=== PATIENT | female | born 1970 | race Caucasian/White ===

== ENCOUNTER 2019-06-05 05:36 | Day surgery (SDC) | payer MEDICARE, MEDICAID ==
[~2019-06-05] VITALS: Ht 157.5 cm; Wt 68.9 kg
[~2019-06-05 05:36] MED LIST: ATOR10TA70 PO; CHOL400T14 PO; DOCU100C40 PO; ERYT60SO TOP; PHEN16.22 PO; POLY17PO10 PO; SERT100T10 PO; famotidine 10mg tablet PO ONE; ringers solution, lacted 1,000 ML IV SCH
[2019-06-05 05:45] VITALS: BP 119/73
[2019-06-05] MEDS ORDERED: LIDOcaine 1% (10mg/ml) 2ml vial ONE (06:15)
[2019-06-05] MEDS ORDERED: midazolam 2 mg/2 ml injection ONE ×2 (07:09→08:29)
[2019-06-05] MEDS ORDERED: fentaNYL/PF 50MCG/1 ML 2ML syringe ONE ×2 (07:09→08:29)
[2019-06-05] MEDS ORDERED: oxymetazoline 15 ML nasal spray NS ONE (07:11)
[2019-06-05] MEDS ORDERED: LIDOcaine 2% 10ml TOPICAL JELLY (Urojet) ONE (07:11)
[2019-06-05] MEDS ORDERED: ondansetron/PF 4mg/2ml inj ONE (07:13)
[2019-06-05] MEDS ORDERED: dexamethasone sod phosphate 4mg/ml inj. ONE (07:13)
[2019-06-05] MEDS ORDERED: propofol inj 20 ML IV ONE (07:13)
[2019-06-05] MEDS ORDERED: LIDOcaine 2% (20mg/ml) 5ml vial ONE (07:13)
[2019-06-05] MEDS ORDERED: rocuronium 10mg/ml inj IV ONE (07:13)
[2019-06-05] MEDS ORDERED: ringers solution, lacted 1,000 ML IV SCH (07:22)
[2019-06-05] MEDS ORDERED: morphine 4 MG/ML inj SYRINge IV PRN ×2 (07:25)
[2019-06-05] MEDS ORDERED: fentaNYL/PF 50MCG/1 ML 2ML syringe IV PRN ×2 (07:25)
[2019-06-05] MEDS ORDERED: ondansetron/PF 4mg/2ml inj IV PRN (07:25)
[2019-06-05] MEDS ORDERED: hydrALAZINE 20mg/ml inj. IV PRN (07:25)
[2019-06-05] MEDS ORDERED: labetalol 20mg/4ml (5mg/ml) syringe IV PRN (07:25)
[2019-06-05 07:32] LABS: EOSINOPHILS # (AUTO) 0.1 X10'3 (0-0.9); EOSINOPHILS % (AUTO) 2.1 % (0-6); LYMPHOCYTES # (AUTO) 1.1 X10'3 (1.1-4.8); LYMPHOCYTES % (AUTO) 28.7 % (21-51); MEAN CORPUSCULAR HEMOGLOBIN 29.6 PG (27.0-31.0); MEAN CORPUSCULAR HGB CONC 33.5 g/dL (33.0-36.5); MEAN CORPUSCULAR VOLUME 88.3 FL (78-98); MEAN PLATELET VOLUME 8.2 FL (7.4-10.4); MONOCYTES # (AUTO) 0.3 X10'3 (0-0.9); MONOCYTES % (AUTO) 7.1 % (2-12); NEUTROPHILS # (AUTO) 2.4 X10'3 (1.8-7.7); NEUTROPHILS % (AUTO) 61.1 % (42-75); PRE OP HEMATOCRIT 42.8 % (35.0-45.0); PRE OP HEMOGLOBIN 14.3 g/dL (12.0-16.0); PRE OP PLATELET COUNT 218 X10'3 (140-440); RED BLOOD COUNT 4.85 X10'6 (4.20-5.60); RED CELL DISTRIBUTION WIDTH 14.7 % (11.5-14.5)
[2019-06-05] MEDS ORDERED: glycopyrrolate 0.2mg/ml inj ONE (07:32)
[2019-06-05] MEDS ORDERED: sevoflurane 250ml liquid IH ONE (07:32)
[2019-06-05] MEDS ORDERED: neostigmine methylsulfate 1 MG/ML 10ml vial ONE (07:32)
[2019-06-05 07:46] LABS: ALBUMIN 4.1 G/DL (3.4-5.0); ALKALINE PHOSPHATASE 102 IU/L (46-116); BLOOD UREA NITROGEN 13 MG/DL (7-18); BUN/CREATININE RATIO 24.1 (6.6-38.0); CALCIUM 9.3 MG/DL (8.5-10.1); CHLORIDE 104 MMOL/L (99-107); CREATININE 0.54 MG/DL (0.40-0.90); PRE OP ALT 26 U/L (30-65); PRE OP ANION GAP 6 (8-16); PRE OP AST 15 U/L (10-37); PRE OP BILIRUB, TOTAL 0.3 MG/DL (0.0-1.0); PRE OP GLUCOSE 82 MG/DL (70-104); PRE OP SODIUM 138 MMOL/L (135-145); TOTAL CARBON DIOXIDE 27.6 MMOL/L (24-32); TOTAL PROTEIN 8.1 G/DL (6.4-8.2); eGFR > 90 ML/MIN
[2019-06-05 09:19] VITALS: BP 127/63
--- NOTE | 2019-06-05 09:19 | NUR ---
Received from OR via [facility] , accompanied by Anesthesiologist EZIO and report given by Anesthesiolgist. PATIENT WITH 20G PIV IN RIGHT UE RUNNING LR AT 100. NO DRAINS PRESENT. VSS. Addendum: 06/05/19 at 0934 by Gustabo Navarro RN RN Amended: Links added.
[2019-06-05 09:29] VITALS: BP 129/69
--- NOTE | 2019-06-05 09:39 | NUR ---
ALL DC CRITERIA HAS BEEN MET. IV TAKEN OUT WITHOUT COMPLICATIONS. ALL INSTRUCTIONS COVERED AND ALL QUESTIONS ANSWERED. DRESSINGS CDI. OUT VIA WHEELCHAIR TO PERSONAL VEHICLE WHERE PATIENT WAS SECURED IN AND DRIVEN HOME BY FAMILY. ANIMAL TRAPPER PRESENT TO HELP WITH DRESSING AND CLEANSING. (LOST BLADDER CONTROL) PATIENT CLEANSED AND SKIN CDI. OUT VIA PERSONAL WHEELCHAIR AND TRANSPORT WITH LAWYER REAL ESTATE. ALL QUESTIONS ANSWERED. Addendum: 06/05/19 at 0955 by Gustabo Navarro RN, RN Amended: Links added.
== END 2019-06-05 09:39 | disposition home or self-care (01) ==
LOC: PAS 05:36
PROVIDERS: ATTEND Student in an Organized Health Care Education/Training Program
DX: K02.9 Dental caries, unspecified (principal); K05.6 Periodontal disease, unspecified; F32.9 Major depressive disorder, single episode, unspecified; G80.0 Spastic quadriplegic cerebral palsy; E78.5 Hyperlipidemia, unspecified; G40.909 Epilepsy, unspecified, not intractable, without status epilepticus; E66.3 Overweight; Z68.27 Body mass index [BMI] 27.0-27.9, adult; Z79.899 Other long term (current) drug therapy
CPT/HCPCS: 36415; 41899; 80053; 85025; J1100; J2001; J2250; J2405; J2704; J2710; J3010; A4618; A7000; J3490; J7120

== ENCOUNTER 2022-06-15 18:06 | Emergency (ER) | payer MEDICARE, OTHER ==
[~2022-06-15] VITALS: Ht 157.5 cm; Wt 77.3 kg
[~2022-06-15 18:06] MED LIST changes: +SERT-434 PO; -SERT100T10 PO; -famotidine 10mg tablet PO ONE; -ringers solution, lacted 1,000 ML IV SCH
[2022-06-15 18:19] VITALS: BP 118/90
[2022-06-15] MEDS ORDERED: MICO24CM2 VG (23:07)
--- NOTE | 2022-06-15 23:28 | NUR ---
[phone] RN sanitation worker hosing machinery [phone] Fatemeh, Caregiver; or Arely, Caregiver
== END 2022-06-15 23:37 | disposition home or self-care (01) ==
LOC: ER 18:07
DX: N89.8 Other specified noninflammatory disorders of vagina (principal); R30.9 Painful micturition, unspecified; Z88.0 Allergy status to penicillin; Z88.1 Allergy status to other antibiotic agents; Z88.5 Allergy status to narcotic agent; Z88.8 Allergy status to other drugs, medicaments and biological substances; Z79.899 Other long term (current) drug therapy; Z79.1 Long term (current) use of non-steroidal anti-inflammatories (NSAID); Z79.2 Long term (current) use of antibiotics
CPT/HCPCS: 87210; 99284

== ENCOUNTER 2023-06-16 18:13 | Emergency (ER) | payer MEDICARE, OTHER ==
[~2023-06-16] VITALS: Ht 157.5 cm; Wt 75.0 kg
[~2023-06-16 18:13] MED LIST changes: +MICO24CM2 VG
[2023-06-16 18:20] VITALS: RESP 19
[2023-06-16 20:58] VITALS: BP 114/95; PULSE 115; TEMP 98; O2SAT 93
== END 2023-06-16 21:29 | disposition home or self-care (01) ==
LOC: ER 18:14
DX: S83.8X1A Sprain of other specified parts of right knee, initial encounter (principal); X58.XXXA Exposure to other specified factors, initial encounter; Y93.89 Activity, other specified; Y92.89 Other specified places as the place of occurrence of the external cause; Y99.8 Other external cause status
CPT/HCPCS: 73564; 99284

== ENCOUNTER 2023-06-20 19:21 | Emergency (ER) | payer MEDICARE, OTHER ==
[~2023-06-20] VITALS: Ht 157.5 cm; Wt 84.6 kg
[2023-06-20 20:43] VITALS: TEMP 97.5
[2023-06-20 21:23] LABS: BASOPHILS # (AUTO) 0.1 X10'3 (0-0.2); BASOPHILS % (AUTO) 0.7 % (0-1); EOSINOPHILS # (AUTO) 0.2 X10'3 (0-0.9); EOSINOPHILS % (AUTO) 1.8 % (0-6); HEMATOCRIT 32.3 % (35.0-45.0); HEMOGLOBIN 10.3 g/dl (12.0-16.0); LYMPHOCYTES # (AUTO) 1.3 X10'3 (1.1-4.8); LYMPHOCYTES % (AUTO) 14.9 % (21-51); MEAN CORPUSCULAR HEMOGLOBIN 25.5 PG (27.0-31.0); MEAN CORPUSCULAR HGB CONC 31.8 g/dL (33.0-36.5); MEAN CORPUSCULAR VOLUME 80.2 FL (78-98); MEAN PLATELET VOLUME 7.1 FL (7.4-10.4); MONOCYTES # (AUTO) 0.7 X10'3 (0-0.9); MONOCYTES % (AUTO) 7.3 % (2-12); NEUTROPHILS # (AUTO) 6.8 X10'3 (1.8-7.7); NEUTROPHILS % (AUTO) 75.3 % (42-75); PLATELET COUNT 274 X10'3 (140-440); RED BLOOD COUNT 4.03 X10'6 (4.20-5.60); RED CELL DISTRIBUTION WIDTH 20.5 % (11.5-14.5); WHITE BLOOD COUNT 9.1 X10'3 (4.5-11.0)
[2023-06-20 21:39] LABS: ALANINE AMINOTRANSFERASE 13 U/L (12-78); ALBUMIN 2.4 G/DL (3.4-5.0); ALBUMIN/GLOBULIN RATIO 0.5 (1.1-1.5); ALKALINE PHOSPHATASE 87 IU/L (46-116); ANION GAP 9 (8-16); ASPARTATE AMINO TRANSFERASE 15 U/L (10-37); BILIRUBIN,TOTAL 0.4 MG/DL (0.1-1.0); BLOOD UREA NITROGEN 19 MG/DL (7-18); BUN/CREATININE RATIO 34.5 (10.0-20.0); CALCIUM 9.4 MG/DL (8.5-10.1); CHLORIDE 107 MMOL/L (99-107); CREATININE 0.55 MG/DL (0.40-0.90); GLUCOSE 131 MG/DL (70-104); SODIUM 142 MMOL/L (135-145); TOTAL CARBON DIOXIDE 26.5 MMOL/L (24-32); TOTAL PROTEIN 7.1 G/DL (6.4-8.2); eCRCL 95 ML/MIN; eGFR > 90 ML/MIN
[2023-06-20] MEDS ORDERED: sulfamethoxazole/trimethoprim DS (800/160mg) tablet PO ONE (21:55)
[2023-06-20] MEDS ORDERED: cephalexin 250mg capsule PO ONE (21:55)
[2023-06-20 21:58] VITALS: BP 134/111; PULSE 97; RESP 20; O2SAT 99
[2023-06-20 22:02] LABS: ANISOCYTOSIS 3+; ELLIPTOCYTES FEW; PLATELET ESTIMATE NORMAL
[2023-06-20] MEDS ORDERED: CEPH-585 PO ×3 (22:03→23:12)
[2023-06-20] MEDS ORDERED: SULF1TAB45 PO ×3 (22:03→23:12)
== END 2023-06-20 23:52 | disposition home or self-care (01) ==
LOC: ER 19:21
DX: L03.115 Cellulitis of right lower limb (principal)
CPT/HCPCS: 36415; 80053; 84145; 85008; 85025; 93971; 99284

== ENCOUNTER 2024-04-26 09:59 | Emergency (ER) | payer MEDICARE, OTHER ==
[~2024-04-26] VITALS: Ht 170.2 cm; Wt 68.1 kg
[~2024-04-26 09:59] MED LIST changes: +CEPH-585 PO; +SULF1TAB45 PO
[2024-04-26 10:01] VITALS: BP 105/71; PULSE 78; RESP 16; O2SAT 96
[2024-04-26] MEDS: sulfamethoxazole/trimethoprim DS (800/160mg) tablet PO ONE (10:44)
[2024-04-26] MEDS ORDERED: SULF1TAB49 PO (10:45)
[2024-04-26 11:08] VITALS: TEMP 97.2
== END 2024-04-26 11:11 | disposition home or self-care (01) ==
LOC: ER 09:59
DX: H00.031 Abscess of right upper eyelid (principal); Z88.0 Allergy status to penicillin; Z88.1 Allergy status to other antibiotic agents; Z88.5 Allergy status to narcotic agent; Z79.899 Other long term (current) drug therapy
CPT/HCPCS: 99284